=== PATIENT | female | born 1935 | race Asian ===

== ENCOUNTER 2019-03-01 10:49 | Emergency (ER) | payer OTHER ==
[~2019-03-01] VITALS: Ht 162.6 cm; Wt 66.4 kg
[~2019-03-01 10:49] MED LIST: ALLO100T PO; AMLO-218 PO; ASPI-903 PO; CARV6.2579 PO; CEPH500C PO; HYDR-3672 PO; ISOS30TA67 PO; LEVO100T8 PO; LEVO75TA65 PO; LOSA100T15 PO; METF-849 PO; METF500T24 PO; NITR0.4T32 SL; PANT40TA4 PO; TRAM50TA2 PO
[2019-03-01 10:55] VITALS: Ht 162.6 cm; Wt 66.4 kg
[2019-03-01] MEDS ORDERED: ONDANSETRON 4 MG INJ IV STA (11:06)
[2019-03-01] MEDS ORDERED: SOD CHLORIDE 0.9% 500 ML IV STA (11:06)
[2019-03-01 12:00] VITALS: BP 158/66; PULSE 60; RESP 18
[2019-03-01] MEDS ORDERED: CEFTRIAXONE 1 GM/50 ML (PMX) 50 ML IVPB ONE (12:00)
== END 2019-03-01 13:52 | disposition home or self-care (01) ==
LOC: E/R 10:49
DX: N39.0 Urinary tract infection, site not specified (principal); R55 Syncope and collapse; I10 Essential (primary) hypertension; E11.9 Type 2 diabetes mellitus without complications; I25.810 Atherosclerosis of coronary artery bypass graft(s) without angina pectoris; I25.2 Old myocardial infarction; Z79.84 Long term (current) use of oral hypoglycemic drugs
CPT/HCPCS: 36415; 71045; 80053; 81001; 83690; 84484; 85025; 87086; 93005; 96374; 96375; 99284; J0696; J2405; J7040